=== PATIENT | male | born 1990 | race Caucasian/White ===

== ENCOUNTER 2025-05-07 02:23 | Inpatient (IN) | payer SELFPAY ==
[~2025-05-07] VITALS: Ht 177.8 cm; Wt 85.0 kg
[2025-05-07 03:27] LABS: BASOPHILS % 0.3 % (0.0-2.0); EOSINOPHILS % 6.1 % (0.0-5.0); HEMATOCRIT. 43.6 % (42.0-52.0); HEMOGLOBIN. 15.3 g/dL (14.0-18.0); LYMPHOCYTES % 42.7 % (20.0-50.0); MEAN PLATELET VOLUME 7.7 fl (7.4-10.4); MONOCYTES % 9.6 % (2.0-8.0); NEUTROPHILS % 41.3 % (40.0-76.0); PLATELET 282 x1000/uL (130-400); RED BLOOD CELL COUNT 5.03 mill/uL (4.7-6.1); RED CELL DISTRIBUTION WIDTH 12.9 % (11.6-14.6)
[2025-05-07 03:38] LABS: CREATININE 1.1 mg/dL (0.6-1.3); UREA NITROGEN BLOOD 12 mg/dL (9-23)
[2025-05-07] MEDS: KETOROLAC 15MG/ML VIAL IM ONE (04:14)
[2025-05-07] MEDS ORDERED: BO1 TP (04:16)
[2025-05-07] MEDS ORDERED: CEPH500C2 MT (04:16)
[2025-05-07] MEDS ORDERED: NAPR-1176 MT (04:16)
[2025-05-07 05:07] LABS: ASPARTATE AMINOTRANSFERASE 18 IU/L (<34); BILIRUBIN DIRECT 0.1 mg/dL (<=3.0); BILIRUBIN TOTAL 0.5 mg/dL (0.1-1.0); PROTEIN TOTAL 7.3 g/dL (6.0-8.3)
[2025-05-07] MEDS ORDERED: ACETAMINOPHEN 325MG TABLET PO PRN ×2 (05:15)
[2025-05-07] MEDS ORDERED: ONDANSETRON HCL 4MG/2ML INJ IV PRN (05:15)
[2025-05-07] MEDS ORDERED: IPRATROPIUM/ALBUTEROL 0.5-3(2.5)MG/3ML NEB HHN PRN (05:15)
[2025-05-07] MEDS: CEFTRIAXONE 1GM/50ML 50 ML IV SCH (05:21)
[2025-05-07 08:00] VITALS: BP 109/74; PULSE 75; RESP 20; TEMP 36.4; O2SAT 100
[2025-05-07] MEDS ORDERED: CLOTRIMAZOLE 1% CREAM 15GM TOP SCH (09:00)
[2025-05-07] MEDS: TERBINAFINE HCL 1% CREAM 15GM TOP SCH (09:32)
[2025-05-07] MEDS: CEPHALEXIN 250MG CAPSULE PO SCH (11:12)
[2025-05-07] MEDS ORDERED: CEPH250C2 PO (11:37)
[2025-05-07] MEDS: TERBINAFINE HCL 250MG TABLET PO SCH (11:45)
[2025-05-07 12:00] VITALS: BP 111/73; PULSE 71; RESP 20; TEMP 36.4; O2SAT 100
[2025-05-07] MEDS ORDERED: TERB30CR8 TP (12:18)
[2025-05-07] MEDS ORDERED: TERB250T88 MT (12:18)
[2025-05-07 13:18] VITALS: BP 114/76; PULSE 79; TEMP 98.7; O2SAT 100
== END 2025-05-07 14:51 | disposition home or self-care (01) | DRG 385 ==
LOC: ER 02:23 → 7EST 04:53 → EDBEDREQTM 04:56 → EDBEDREQ 04:56 → ENRESERV 05:24
PROVIDERS: ADMIT Hospitalist; ATTEND Hospitalist
DX: B35.3 Tinea pedis (principal); L97.818 Non-pressure chronic ulcer of other part of right lower leg with other specified severity; F17.210 Nicotine dependence, cigarettes, uncomplicated; Z83.3 Family history of diabetes mellitus; Z79.899 Other long term (current) drug therapy
CPT/HCPCS: 36415; 73610; 73630; 80048; 80076; 83036; 84145; 85025; 85651; 99285; A4606; J0696; J1885

== ENCOUNTER 2025-10-08 13:50 | Emergency (ER) | payer SELFPAY ==
[~2025-10-08] VITALS: Ht 170.2 cm; Wt 92.0 kg
[~2025-10-08 13:50] MED LIST: BO1 TP; CEPH250C2 PO; CEPH500C2 MT; NAPR-1176 MT; TERB250T88 MT; TERB30CR8 TP
[2025-10-08 13:59] VITALS: O2SAT 99
[2025-10-08] MEDS ORDERED: BO1 TP (16:57)
[2025-10-08] MEDS ORDERED: TERB250T88 MT (16:57)
[2025-10-08] MEDS ORDERED: TERB30CR8 TP (16:57)
[2025-10-08] MEDS ORDERED: CEPH500C2 MT (16:57)
[2025-10-08] MEDS: CEFTRIAXONE SODIUM 500MG VIAL IM ONE (17:55)
[2025-10-08 18:29] VITALS: BP 136/75; PULSE 90; RESP 18; TEMP 36.8; O2SAT 99
[2025-10-08] MEDS ORDERED: BACITRACIN ZINC OINT UDPKT TOP ONE (18:30)
== END 2025-10-08 18:28 | disposition home or self-care (01) ==
LOC: ER 13:50
DX: L08.9 Local infection of the skin and subcutaneous tissue, unspecified (principal); Z79.899 Other long term (current) drug therapy
CPT/HCPCS: 99283; 73630; 96372; J0696